=== PATIENT | male | born 1965 | race Caucasian/White ===

== ENCOUNTER 2018-08-03 09:45 | Day surgery (SDC) | payer BC ==
[~2018-08-03] VITALS: Ht 180.3 cm; Wt 104.8 kg
[2018-08-03 05:19] LABS: BASOPHILS 0.5 % (0-2); EOSINOPHILS 0.8 % (0-7); HEMATOCRIT 27.7 % (42.0-54.0); HEMOGLOBIN 8.3 g/dL (13.5-17.5); LYMPHOCYTES 29.3 % (15-50); MCH 21.1 pg (26.0-34.0); MCV 70.3 fL (80.0-100.0); MONOCYTES 12.1 % (2-11); NEUTROPHILS 57.3 % (40-80); PLATELET COUNT 152 10x3/uL (130-400); RBC 3.94 10x6/uL (4.20-6.10); RDW 18.9 % (11.5-14.5); WBC 3.8 10x3/uL (4.8-10.8)
[~2018-08-03 09:45] MED LIST: COLCRYS0.6 MG PO; LISINOPRIL5 MG; PRINIVIL20 MG; ZOCOR20 MG PO; ZYLOPRIM100 MG
[2018-08-03 10:39] LABS: ANION GAP 11.4 mmol/L (8-16); CALCIUM 9.2 mg/dL (8.5-10.1); CARBON DIOXIDE 28.1 mmol/L (21.0-32.0); CREATININE - SERUM 1.1 mg/dL (0.6-1.3); POTASSIUM - SERUM 4.5 mmol/L (3.5-5.1)
[2018-08-03] MEDS ORDERED: OMEPRAZOLE20 M1 PO (11:42)
[2018-08-03 11:52] VITALS: BP 133/80; Ht 180.3 cm; Wt 104.8 kg
[2018-08-03] MEDS ORDERED: MIRALAX17 GM PO (14:12)
[2018-08-03] MEDS ORDERED: VALIUM5 MG PO (14:12)
== END 2018-08-03 16:25 | disposition home or self-care (01) ==
LOC: D.OPS 09:45 → D.PAN 12:00 → D.OPS 16:25 → D.PAN 08-10 10:15
PROVIDERS: Anesthesiology; Surgery
DX: K64.8 Other hemorrhoids (principal)